=== PATIENT | male | born 1970 | race Caucasian/White ===

== ENCOUNTER 2023-06-12 10:33 | Outpatient (CLI) | payer OTHER | END 2023-06-12 10:34 | disposition home or self-care (01) | LOC: RAD 10:33 | PROVIDERS: ATTEND Orthopaedic Surgery Sports Medicine | DX: M25.511 Pain in right shoulder (principal); M25.711 Osteophyte, right shoulder; M25.811 Other specified joint disorders, right shoulder; R93.7 Abnormal findings on diagnostic imaging of other parts of musculoskeletal system ==